=== PATIENT | male | born 1975 | race Caucasian/White ===

== ENCOUNTER 2024-09-10 19:47 | Emergency (ER) | payer SELFPAY ==
[~2024-09-10] VITALS: Ht 172.7 cm; Wt 70.0 kg
[2024-09-10 19:55] VITALS: O2SAT 99
[2024-09-10] MEDS: KETOROLAC 30MG/ML VIAL IM ONE (20:44)
[2024-09-10] MEDS: TETANUS, DIPHTHERIA, PERTUSSIS VAC/PF 0.5ML (>10YR OLD) IM ONE (20:46)
[2024-09-10] MEDS: TRANEXAMIC ACID 1,000MG/10ML IV ONE (21:52)
[2024-09-10] MEDS ORDERED: CEPH500C2 MT (22:02)
[2024-09-10] MEDS ORDERED: IBUP-2029 MT (22:02)
[2024-09-10] MEDS: LIDOCAINE HCL 1% 20ML VIAL INFIL ONE (22:51)
[2024-09-10 23:31] VITALS: BP 137/89; PULSE 72; RESP 16; TEMP 36.7; O2SAT 99
== END 2024-09-10 23:31 | disposition home or self-care (01) ==
LOC: ER 19:47
DX: S61.211A Laceration without foreign body of left index finger without damage to nail, initial encounter (principal); X58.XXXA Exposure to other specified factors, initial encounter; Y93.89 Activity, other specified; Y92.89 Other specified places as the place of occurrence of the external cause; Y99.8 Other external cause status
CPT/HCPCS: 73130; 90715; 12001; 90471; 96372; 96374; 99284; J1885; J3490; Z7610

== ENCOUNTER 2024-09-13 09:10 | Emergency (ER) | payer OTHER ==
[~2024-09-13] VITALS: Ht 175.3 cm; Wt 89.0 kg
[~2024-09-13 09:10] MED LIST: CEPH500C2 MT; IBUP-2029 MT
[2024-09-13 09:23] VITALS: O2SAT 100
[2024-09-13 09:44] VITALS: BP 130/87; PULSE 17; RESP 12; TEMP 36.8; O2SAT 100
== END 2024-09-13 09:47 | disposition home or self-care (01) ==
LOC: ER 09:10
DX: S61.210D Laceration without foreign body of right index finger without damage to nail, subsequent encounter (principal); Z48.00 Encounter for change or removal of nonsurgical wound dressing; X58.XXXD Exposure to other specified factors, subsequent encounter
CPT/HCPCS: 99281